=== PATIENT | male | born 1985 | race Caucasian/White ===

== ENCOUNTER 2016-12-31 19:42 | Emergency (ER) | payer SELFPAY ==
[~2016-12-31 19:42] MED LIST: NO HOME MEDICATION XX; NORCO 5-325 TA1 EACH PO; OXYCODONE/APAP; PROMETHAZINE HC25 M3 PO; ZOFRAN4 M2 PO
[2017-04-28] MEDS ORDERED: NO HOME MEDICATION XX (22:52)
[2017-05-01] MEDS ORDERED: MULTI-VITAMIN1 EAC3 PO (14:01)
== END 2016-12-31 20:26 | disposition left against medical advice (07) ==
LOC: EDMED 19:42
DX: Z53.21 Procedure and treatment not carried out due to patient leaving prior to being seen by health care provider (principal)

== ENCOUNTER 2017-01-04 18:20 | Inpatient (IN) | payer SELFPAY ==
[2017-01-04 19:15] LABS: BASO % 0.4 % (0-2); EOS % 0.7 % (0-7); EOSINOPHIL ABSOLUTE COUNT 0.1 tho/cmm (0.0-0.7); HCT-HEMATOCRIT 40.8 % (36.0-53.5); HGB-HEMOGLOBIN 14.8 gm/dl (13.5-17.0); IMMATURE GRANULOCYTES ABSOLUTE 0.02 tho/cmm (0-0.03); IMMATURE GRANULOCYTES PERCENT 0.2 % (0-0.3); LYMPH % 16.3 % (20-45); LYMPH ABSOLUTE COUNT 1.5 tho/cmm (0.8-4.5); MCH (MEAN CORPUSCULAR HGB) 34.7 pg (28.0-32.0); MCHC MEAN CORPUSCULAR HGB CONC 36.3 % (32.0-36.0); MCV (MEAN CELL VOLUME) 95.6 fl (82.0-96.0); MEAN PLATELET VOLUME 9.6 cmc (9.4-12.4); MONO % 9.7 % (0-12); MONOCYTE ABSOLUTE COUNT 0.9 tho/cmm (0.0-1.2); NEUTROPHIL ABSOLUTE COUNT 6.5 tho/cmm (1.6-8.0); NEUTROPHIL-AUTOMATED 6.5 tho/cmm (1.6-8.0); NEUTROPHILS % 72.7 % (40-80); PLATELET COUNT 297 tho/cmm (150-450); RED BLOOD COUNT 4.27 mil/cmm (4.40-5.70); RED CELL DISTRIBUTION WIDTH 13.7 % (12.4-16.4); WHITE BLOOD COUNT 8.9 tho/cmm (4.0-10.0)
[2017-01-04 19:19] LABS: INR 0.9 INR (0.9-1.1); PROTHROMBIN TIME 10.2 SECONDS (9.0-13.6)
[2017-01-04 19:30] LABS: ALB/GLOB RATIO 1.1 (0.8-2.0); ALBUMIN 4.3 g/dl (3.5-5.0); ALKALINE PHOSPHATASE 62 U/L (33-138); ALT/SGPT 38 U/L (12-78); AMYLASE 146 U/L (20-90); ANION GAP 17 mmol/L (0-20); AST/SGOT 91 U/L (10-40); BILIRUBIN,TOTAL 0.6 mg/dl (0.0-1.5); BLOOD UREA NITROGEN 7 mg/dl (6-24); CALCIUM 9.2 mg/dl (8.5-10.5); CARBON DIOXIDE-VENOUS 23 mmol/L (22-32); CHLORIDE 103 mmol/l (96-110); CREATININE 0.77 mg/dl (0.60-1.30); GLUCOSE 110 mg/dL (70-110); POTASSIUM 3.6 mmol/L (3.7-5.1); SODIUM 139 mmol/L (135-145); eGFR VALUE FOR BLACK >90 mL/Min
[2017-01-04 19:34] LABS: LIPASE 2314 U/L (73-393)
[2017-01-05 01:22] LABS: OSMOLALITY 286 mOsm/kg (275-295)
[2017-01-05 01:29] LABS: C-REACTIVE PROTEIN 0.4 mg/dl (0-0.9); MAGNESIUM 1.7 mg/dl (1.3-2.6); PHOSPHOROUS 3.6 mg/dl (2.5-4.9)
[2017-01-05 01:34] LABS: ACETAMINOPHEN LEVEL <3 ug/ml (10-30); SALICYLATE <2.8 mg/dl (2.8-20)
[2017-01-05 05:39] LABS: BASO % 0.2 % (0-2); HCT-HEMATOCRIT 37.7 % (36.0-53.5); HGB-HEMOGLOBIN 12.9 gm/dl (13.5-17.0); IMMATURE GRANULOCYTES ABSOLUTE 0.01 tho/cmm (0-0.03); IMMATURE GRANULOCYTES PERCENT 0.1 % (0-0.3); LYMPH % 11.5 % (20-45); LYMPH ABSOLUTE COUNT 0.9 tho/cmm (0.8-4.5); MCH (MEAN CORPUSCULAR HGB) 33.5 pg (28.0-32.0); MCV (MEAN CELL VOLUME) 97.9 fl (82.0-96.0); MEAN PLATELET VOLUME 9.8 cmc (9.4-12.4); MONO % 9.6 % (0-12); MONOCYTE ABSOLUTE COUNT 0.8 tho/cmm (0.0-1.2); NEUTROPHIL ABSOLUTE COUNT 6.3 tho/cmm (1.6-8.0); NEUTROPHIL-AUTOMATED 6.3 tho/cmm (1.6-8.0); NEUTROPHILS % 78.6 % (40-80); PLATELET COUNT 250 tho/cmm (150-450); RED BLOOD COUNT 3.85 mil/cmm (4.40-5.70); RED CELL DISTRIBUTION WIDTH 13.8 % (12.4-16.4)
[2017-01-05 06:08] LABS: ALBUMIN 3.5 g/dl (3.5-5.0); ALT/SGPT 31 U/L (12-78); AMYLASE 183 U/L (20-90); ANION GAP 14 mmol/L (0-20); AST/SGOT 61 U/L (10-40); BILIRUBIN,DIRECT 0.3 mg/dl (0.0-0.3); BILIRUBIN,INDIRECT 0.6 mg/dL (0.0-1.0); BILIRUBIN,TOTAL 0.9 mg/dl (0.0-1.5); BLOOD UREA NITROGEN 5 mg/dl (6-24); CALCIUM 8.4 mg/dl (8.5-10.5); CARBON DIOXIDE-VENOUS 25 mmol/L (22-32); CHLORIDE 103 mmol/l (96-110); CREATININE 0.58 mg/dl (0.60-1.30); GLUCOSE 104 mg/dL (70-110); POTASSIUM 4.1 mmol/L (3.7-5.1); SODIUM 138 mmol/L (135-145); TRIGLYCERIDES 37 mg/dl (<149); VLDL 7 mg/dl (0-30); eGFR VALUE FOR BLACK >90 mL/Min
[2017-01-05 06:08] LABS: MCHC MEAN CORPUSCULAR HGB CONC 34.2 % (32.0-36.0)
[2017-01-05 06:18] LABS: ALKALINE PHOSPHATASE 58 U/L (33-138); LIPASE 2867 U/L (73-393)
[2017-01-05 06:37] LABS: CHOLESTEROL 150 mg/dl (120-200); HDL CHOLESTEROL 105 mg/dl (40-60); LDL CHOLESTEROL 38 mg/dl (0-99)
[2017-01-06 06:51] LABS: BASO % 0.3 % (0-2); EOS % 1.7 % (0-7); EOSINOPHIL ABSOLUTE COUNT 0.1 tho/cmm (0.0-0.7); HCT-HEMATOCRIT 36.5 % (36.0-53.5); HGB-HEMOGLOBIN 12.5 gm/dl (13.5-17.0); IMMATURE GRANULOCYTES ABSOLUTE 0.01 tho/cmm (0-0.03); IMMATURE GRANULOCYTES PERCENT 0.1 % (0-0.3); LYMPH % 21.8 % (20-45); LYMPH ABSOLUTE COUNT 1.6 tho/cmm (0.8-4.5); MCH (MEAN CORPUSCULAR HGB) 33.7 pg (28.0-32.0); MCHC MEAN CORPUSCULAR HGB CONC 34.2 % (32.0-36.0); MCV (MEAN CELL VOLUME) 98.4 fl (82.0-96.0); MEAN PLATELET VOLUME 9.9 cmc (9.4-12.4); MONO % 9.9 % (0-12); MONOCYTE ABSOLUTE COUNT 0.7 tho/cmm (0.0-1.2); NEUTROPHIL ABSOLUTE COUNT 4.9 tho/cmm (1.6-8.0); NEUTROPHIL-AUTOMATED 4.9 tho/cmm (1.6-8.0); NEUTROPHILS % 66.2 % (40-80); PLATELET COUNT 205 tho/cmm (150-450); RED BLOOD COUNT 3.71 mil/cmm (4.40-5.70); RED CELL DISTRIBUTION WIDTH 13.5 % (12.4-16.4); WHITE BLOOD COUNT 7.5 tho/cmm (4.0-10.0)
[2017-01-06 07:03] LABS: ALB/GLOB RATIO 0.9 (0.8-2.0); ALKALINE PHOSPHATASE 49 U/L (33-138); ALT/SGPT 27 U/L (12-78); ANION GAP 9 mmol/L (0-20); AST/SGOT 46 U/L (10-40); BILIRUBIN,TOTAL 0.9 mg/dl (0.0-1.5); BLOOD UREA NITROGEN 3 mg/dl (6-24); CALCIUM 7.6 mg/dl (8.5-10.5); CARBON DIOXIDE-VENOUS 28 mmol/L (22-32); CHLORIDE 105 mmol/l (96-110); CREATININE 0.62 mg/dl (0.60-1.30); GLUCOSE 104 mg/dL (70-110); POTASSIUM 3.7 mmol/L (3.7-5.1); SODIUM 138 mmol/L (135-145); eGFR VALUE FOR BLACK >90 mL/Min
[2017-01-06 07:20] LABS: LIPASE 1428 U/L (73-393)
[2017-01-06] MEDS ORDERED: MULTIVITAMIN PO (11:58)
[2017-04-28] MEDS ORDERED: NO HOME MEDICATION XX (22:52)
[2017-05-01] MEDS ORDERED: MULTI-VITAMIN1 EAC3 PO (14:01)
== END 2017-01-06 13:38 | DRG 439 ==
LOC: EDMED 18:20 → EMR2 01-05 00:47 → PCUA 01-05 02:10
PROVIDERS: Family Medicine; ADMIT Hospitalist
DX: K85.20 Alcohol induced acute pancreatitis without necrosis or infection (principal); E87.2 Acidosis; F17.210 Nicotine dependence, cigarettes, uncomplicated; F12.10 Cannabis abuse, uncomplicated; F43.10 Post-traumatic stress disorder, unspecified; E87.6 Hypokalemia; F10.20 Alcohol dependence, uncomplicated
CPT/HCPCS: C9113; G0480; J0780; J1170; J1650; J2060; J2405; J3010; J3411; J3480; J7030; Q9967